=== PATIENT | male | born 1990 | race American Indian/Alaskan Native ===

== ENCOUNTER 2019-09-10 08:55 | Emergency (ER) | payer SELFPAY ==
--- NOTE | 2019-09-10 09:08 | Event Note ---
ED Screening Note ED Screening Note: c/o left hand pain and edema that began yesterday states he believes he jammed never injured before no PMHx no allergies to meds This initial assessment/diagnostic orders/clinical plan/treatment(s) is/are subject to change based on patients health status, clinical progression and re- assessment by fellow clinical providers in the ED. Further treatment and workup at subsequent clinical providers discretion. Patient/guardian urged not to elope from the ED as their condition may be serious if not clinically assessed and managed. Initial orders include: XR of left hand
[2019-09-10 09:10] VITALS: BP 124/75
--- NOTE | 2019-09-10 09:50 | XRay Report ---
LEFT HAND 4 VIEWS INDICATION / CLINICAL INFORMATION: Injured left hand while working with left hand pain and edema. COMPARISON: None available. FINDINGS: BONES / JOINT(S): The joint spaces are well-maintained. There is no evidence of fracture or dislocati on. SOFT TISSUES: There is moderate soft tissue swelling involving the dorsum of the hand. I see no evide nce of a radiopaque foreign body. ADDITIONAL FINDINGS: None. IMPRESSION: Moderate dorsal soft tissue swelling without acute osseous abnormality. Signer Name: Luis E Donnelly MD Signed: 09/10/2019 9:45 AM Workstation Name: [id number]
--- NOTE | 2019-09-10 10:12 | Emergency Department Report ---
HPI - General Chief Complaint: Extremity Injury, Upper Time Seen by Provider: 09/10/19 09:32 - HPI HPI: 28-year-old -Serbian male presents to the emergency department with complaint of some left hand pain and swelling. The patient is not very fort hcoming about the incident that caused his symptoms. Through triage he mentioned something about boxing. For me, the patient says something about accidentally hitting it on something. He is right-hand dominant. He has not taken anything for her symptoms prior to presentation. ED Past Medical Hx - Past Medical History Previous Medical History?: No - Surgical History Past Surgical History?: No - Social History Smoking Status: Never Smoker Substance Use Type: None - Medications Home Medications: Home Medications Medication Instructions Recorded Confirmed Last Taken Type Ibuprofen [Motrin 800 MG tab] 800 mg PO Q8HR PRN #20 tablet 09/10/19 Unknown Rx ED Review of Systems ROS: Stated complaint: LFT HAND SWELING/PAIN Other details as noted in HPI Comment: All other systems reviewed and negative Constitutional: denies: fever Musculoskeletal: joint swelling, arthralgia Skin: denies: rash, lesions Neurological: denies: numbness, paresthesias Physical Exam - Physical Exam Vital Signs: Vital Signs 09/10/19 09:08 Temperature 97.4 F L Pulse Rate 62 Respiratory 20 Rate Blood Pressure 124/75 O2 Sat by Pulse 100 Oximetry Physical Exam: GENERAL: The patient is well-developed well-nourished. HENT: Normocephalic. Atraumatic. Patient has moist mucous membranes. EYES: Extraocular motions are intact. NECK: Supple. Trachea is midline. CHEST/LUNGS: Clear to auscultation. There is no respiratory distress noted. HEART/CARDIOVASCULAR: Regular. There is no tachycardia. There is no murmur. ABDOMEN: There is no abdominal distention. SKIN: Skin is warm and dry. NEURO: The patient is awake, alert, and oriented. The patient is cooperative. The patient has no focal neurologic deficits. Normal speech. MUSCULOSKELETAL: There is some tenderness to palpation to the dorsal left hand, worse towards the radial side. There is some decreased range of motion of the left hand secondary to pain and swelling. Radial pulse +2 over 4 and capillary refill less than 2 seconds to the affected left hand and wrist. ED Course Vital Signs 09/10/19 09:08 Temperature 97.4 F L Pulse Rate 62 Respiratory 20 Rate Blood Pressure 124/75 O2 Sat by Pulse 100 Oximetry ED Medical Decision Making - Radiology Data Radiology results: image reviewed interpreted by me: X-ray of the left hand does not show any fracture, dislocation or any acute process. There is soft tissue swelling noted. - Medical Decision Making This patient presents with some swelling and pain to the dorsal left hand after some type of injury. The patient is not very forthcoming about the etiology of the injury. He is neurovascularly intact. X-ray shows some soft tissue swelling but no fracture or dislocation. He has been placed in a splint and given referral for an orthopedist. He will return to the ER with any worsening of his symptoms or any acute distress. - Differential Diagnosis fracture, dislocation, contusion, sprain Critical Care Time: No Critical care attestation.: If time is entered above; I have spent that time in minutes in the direct care of this critically ill patient, excluding procedure time. ED Disposition Clinical Impression: Injury of left hand Qualifiers: Encounter type: initial encounter Qualified Code(s): S69.92XA - Unspecified injury of left wrist, hand and finger(s), initial encounter Hand contusion Qualifiers: Encounter type: initial encounter Laterality: left Qualified Code(s): S60.222A - Contusion of left hand, initial encounter Disposition: TO HOME OR SELFCARE Is pt being admited?: No Condition: Stable Instructions: Arthralgia (ED) Additional Instructions: Please follow-up with an orthopedist in the next few days, and I am giving you a referral for a local orthopedist, Dr. Lim. Return to the emergency Department with any worsening of your symptoms or any acute distress. I recommend wearing the splint until follow-up with the orthopedist. You can use ice multiple times a day, although not directly against the skin, for the swelling. Prescriptions: Ibuprofen [Motrin 800 MG tab] 800 mg PO Q8HR PRN #20 tablet PRN Reason: Pain , Severe (7-10) Referrals: DENISE LIM MD [Staff Physician] - 2-3 Days Forms: Work/School Release Form(ED) Time of Disposition: 10:12
== END 2019-09-10 10:30 | disposition home or self-care (01) ==
LOC: ED 08:55
DX: S60.222A Contusion of left hand, initial encounter (principal); X58.XXXA Exposure to other specified factors, initial encounter; Y93.89 Activity, other specified; Y92.89 Other specified places as the place of occurrence of the external cause; Y99.8 Other external cause status

== ENCOUNTER 2019-10-11 19:09 | Inpatient (IN) | payer OTHER ==
--- NOTE | 2019-10-11 21:40 | Emergency Department Report ---
Chief Complaint: Extremity Injury, Lower Stated Complaint: BODY PAIN/FEVER Time Seen by Provider: 10/11/19 21:34 - HPI History of Present Illness: 29 y/o male comes in for fever and body ache and right leg pain. Patient works for [employer]. Patient doesn't have a PCP. - Exam Vital Signs: Vital Signs 10/11/19 19:56 Temperature 98.7 F Pulse Rate 99 H Respiratory 18 Rate Blood Pressure 109/52 O2 Sat by Pulse 99 Oximetry Physical Exam: AxO times 3 NAD Chest CTA Heart RRR Right leg mild swelling and red streak MSE screening note: Focused history and physical exam performed. Due to findings the following was ordered: ED Disposition for MSE Condition: Stable
[2019-10-11] MEDS ORDERED: KETOROLAC 30 MG/1 ML INJ IV ONE (22:17)
[2019-10-11] MEDS ORDERED: SULFAMETHOXAZOLE/TRIMETHOPRIM 800/160MG DS TAB PO ONE (22:17)
[2019-10-11] MEDS ORDERED: SODIUM CHLORIDE 0.9% 1000 ML 1,000 ML IV ONE (22:18)
[2019-10-11 22:51] LABS: Basophils % (Auto) 0.3 % (0.0-1.8); Hematocrit 38.5 % (35.5-45.6); Hemoglobin 13.4 gm/dl (11.8-15.2); Lymphocytes # (Auto) 0.7 K/mm3 (1.2-5.4); Mean Corpuscular HGB Conc 35 % (32-34); Mean Corpuscular Volume 86 fl (84-94); Monocytes # (Auto) 1.5 K/mm3 (0.0-0.8); Monocytes % (Auto) 7.8 % (0.0-7.3); Platelet Count 214 K/mm3 (140-440); Red Blood Count 4.48 M/mm3 (3.65-5.03); Red Cell Distribution Width 13.6 % (13.2-15.2)
[2019-10-11 23:57] LABS: Alanine Aminotransferase 9 units/L (7-56); Albumin 4.5 g/dL (3.9-5); BUN/Creatinine Ratio 18; Blood Urea Nitrogen 18 mg/dL (9-20); Hemolysis Index 4
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
[2019-10-12] MEDS ORDERED: SODIUM CHLORIDE 0.9% 1000 ML IV SOLN IV ONE (01:04)
[2019-10-12] MEDS ORDERED: ACETAMINOPHEN 325 MG TAB PO PRN (01:43)
[2019-10-12] MEDS ORDERED: MAGNESIUM HYDROXIDE (MOM) ORAL LIQD UDC PO PRN (01:43)
[2019-10-12] MEDS ORDERED: ONDANSETRON 4 MG/2 ML INJ IV PRN (01:43)
[2019-10-12] MEDS ORDERED: SODIUM CHLORIDE 0.9% 1000 ML 1,000 ML IV SCH (01:45)
[2019-10-12] MEDS ORDERED: VANCOMYCIN 1,500 MG in SODIUM CHLORIDE 0.9% 500 ML 500 ML IV ONE (02:00)
[2019-10-12] MEDS ORDERED: VANCOMYCIN PHARMACY TO DOSE IV SCH (02:00)
--- NOTE | 2019-10-12 06:23 | History and Physical Report ---
History of Present Illness Date of examination: 10/12/19 Date of admission: 10/12/19 01:24 Chief complaint: Pain and redness on the right leg History of present illness: 29-year-old -[place] Islander male presenting to the emergency room today complaining of pain and swelling of the right lower extremity. He has also has some redness on the anterior aspect of the right leg. He denies any fall and denies any trauma to the right lower extremity. Patient indicates that he has been having some fever and chills at home and also also has some generalized body aches and pain over the past few days. Upon arrival in the emergency room patient was found to to be slightly tachycardic, elevated white count of 18, further evaluation reveals cellulitis of the right lower extremity. Past History Past Surgical History: No surgical history Social history: no significant social history Family history: no significant family history Medications and Allergies Allergies Allergy/AdvReac Type Severity Reaction Status Date / Time No Known Allergies Allergy Unverified 09/10/19 08:58 Home Medications Medication Instructions Recorded Confirmed Last Taken Type Ibuprofen [Motrin 800 MG tab] 800 mg PO Q8HR PRN #20 tablet 09/10/19 Unknown Rx Active Meds: Active Medications Acetaminophen (Tylenol) 650 mg PO Q4H PRN PRN Reason: Pain MILD(1-3)/Fever >100.5/WEST Vancomycin HCl 1,250 mg/ (Sodium Chloride) 275 mls @ 166.667 mls/hr IV Q8H JOELLEN Sodium Chloride (Nacl 0.9% 1000 Ml) 1,000 mls @ 75 mls/hr IV DIRECT JOELLEN Magnesium Hydroxide (Milk Of Magnesia) 30 ml PO Q4H PRN PRN Reason: Constipation Ondansetron HCl (Zofran) 4 mg IV Q8H PRN PRN Reason: Nausea And Vomiting Sodium Chloride (Sodium Chloride Flush Syringe 10 Ml) 10 ml IV BID JOELLEN Sodium Chloride (Sodium Chloride Flush Syringe 10 Ml) 10 ml IV PRN PRN PRN Reason: LINE FLUSH Review of Systems Constitutional: fever, chills Integumentary: redness (Redness on the right leg) Exam - Constitutional Vitals: Temp Pulse Resp BP Pulse Ox 97.9 F 72 20 120/71 100 10/12/19 02:31 10/12/19 02:31 10/12/19 04:01 10/12/19 02:31 10/12/19 02:31 General appearance: Present: no acute distress - EENT Eyes: Present: PERRL, EOM intact ENT: hearing intact, clear oral mucosa - Neck Neck: Present: supple, normal ROM - Respiratory Respiratory effort: normal Respiratory: bilateral: CTA - Cardiovascular Rhythm: regular Heart Sounds: Present: S1 & S2 - Extremities Extremities: no ischemia, No edema, Full ROM Extremity abnormal: erythema (Erythema on the anterior aspect of the right leg), tenderness (Mild tenderness on the right leg) Peripheral Pulses: within normal limits - Abdominal General gastrointestinal: Present: soft, non-tender, normal bowel sounds - Integumentary Integumentary: Present: clear, warm, dry - Musculoskeletal Musculoskeletal: strength equal bilaterally - Psychiatric Psychiatric: appropriate mood/affect, intact judgment & insight, cooperative - Neurologic Neurologic: CNII-XII intact Results - Labs CBC & Chem 7: 10/11/19 22:32 10/11/19 22:32 Labs: Abnormal lab results 10/11/19 10/11/19 Range/Units 22:32 22:32 WBC 18.6 H (4.5-11.0) K/mm3 MCHC 35 H (32-34) % Lymph % (Auto) 4.0 L (13.4-35.0) % [place] % (Auto) 7.8 H (0.0-7.3) % Lymph # 0.7 L (1.2-5.4) K/mm3 [place] # 1.5 H (0.0-0.8) K/mm3 Seg Neutrophils % 87.9 H (40.0-70.0) % Seg Neutrophils # 16.4 H (1.8-7.7) K/mm3 Sodium 134 L (137-145) mmol/L Chloride 95.8 L (98-107) mmol/L Glucose 109 H (75-100) mg/dL Total Bilirubin 1.70 H (0.1-1.2) mg/dL Assessment and Plan - Patient Problems (1) Cellulitis of right lower extremity Current Visit: Yes Status: Acute Plan to address problem: Patient has been placed on empiric IV antibiotics. We await blood culture results. Will encourage patient to elevate right lower extremity. (2) Sepsis due to cellulitis Current Visit: Yes Status: Acute Plan to address problem: We will continue on IV antibiotics and IV fluid as above. (3) Leukocytosis Current Visit: Yes Status: Acute Plan to address problem: Possibly secondary to the cellulitis. Will monitor CBC. (4) DVT prophylaxis Current Visit: Yes Status: Acute Plan to address problem: Patient placed on subcutaneous heparin. (5) Full code status Current Visit: Yes Status: Acute
[2019-10-12] MEDS ORDERED: VANCOMYCIN 1,250 MG in SODIUM CHLORIDE 0.9% 250ML 250 ML IV SCH (10:00)
--- NOTE | 2019-10-12 11:24 | Vascular Lab Report ---
DUPLEX DOPPLER LOWER EXTREMITY VEINS, BILATERAL INDICATION: dvt. TECHNIQUE: Duplex doppler imaging was performed through the veins of both lower extremities using venous alex hipolito and other maneuvers. COMPARISON: None available. FINDINGS: Right Common femoral vein: Negative. Right Superficial femoral vein: Negative. Right Popliteal vein: Negative. Right Calf veins: Negative. Left Common femoral vein: Negative. Left Superficial femoral vein: Negative. Left Popliteal vein: Negative. Left Calf veins: Negative. Additional findings: Prominent right groin nodes. Superficial thrombus at the greater saphenous vein at the level the proximal calf. IMPRESSION: 1. No sonographic evidence for DVT in either lower extremity. 2. Probable reactive groin nodes. 3. Superficial thrombus greater saphenous vein and proximal calf. Signer Name: Riky Robert MD Signed: 10/12/2019 11:20 AM Workstation Name: [id number]
[2019-10-12] MEDS: HEPARIN 5,000 UNIT/1 ML VIAL SUB-Q SCH ×2 (13:19→22:30)
--- NOTE | 2019-10-12 15:13 | Event Note ---
Date: 10/12/19 Patient seen and examined, right lower ext with extensive erythema from the groin to the ankle in the medial aspect. Denies any STDs, ingrown hair. Continue abx, obtain ID consult US to rule out DVT.
[2019-10-12 15:24] LABS: Bilirubin,Urine NEG (Negative); Blood,Urine NEG (Negative); Color,Urine Yellow (Yellow); Mucus,Urine FEW /HPF; Protein,Urine <15 mg/dL mg/dL (Negative)
--- NOTE | 2019-10-12 15:25 | Consultation ---
History of Present Illness - Reason for Consult Consult date: 10/12/19 R leg cellulitis Requesting physician: TRAVON PORTER - History of Present Illness The patient is a 29-year-old male with no significant past medical history who came into the emergency room yesterday with complaints of right leg swelling, pain and redness that began the day prior. Associated with some fevers and chills. Denies nausea, vomiting or diarrhea. Denies any high risk behavior, smoking, alcohol or drug use, works for [employer], not sexually active, denies any trauma. Was diagnosed with cellulitis, started on IV antibiotics. Infectious diseases was consulted for antibiotic recommendations. The sounds showed no DVT, showed possible SVT involving the saphenous vein and proximal calf. Review of Systems: General: fever, chills HEENT: no new visual disturbance Respiratory: No cough, sputum, hemoptysis or shortness of breath Cardiovascular: No chest pain, syncope Gastrointestinal: No nausea, vomiting or diarrhea Genitourinary: No dysuria or hematuria Musculoskeletal: No new or worsening neck pain or back pain Neurologic: No headaches, seizures Hematologic: No easy bruising or bleeding Endocrine: No night sweats or acute weight loss Skin: negative for rash, jaundice Psychiatric: No suicidal or homicidal ideation Past History Past Surgical History: No surgical history Social history: no significant social history Family history: no significant family history Medications and Allergies Allergies Allergy/AdvReac Type Severity Reaction Status Date / Time No Known Allergies Allergy Unverified 09/10/19 08:58 Home Medications Medication Instructions Recorded Confirmed Last Taken Type No Known Home Medications [No 10/12/19 10/12/19 Unknown History Reported Home Medications] Active Meds: Active Medications Acetaminophen (Tylenol) 650 mg PO Q4H PRN PRN Reason: Pain MILD(1-3)/Fever >100.5/WEST Heparin Sodium (Porcine) (Heparin) 5,000 unit SUB-Q Q8HR JOELLEN Last Admin: 10/12/19 13:19 Dose: 5,000 unit Documented by: Vancomycin HCl 1,250 mg/ (Sodium Chloride) 275 mls @ 166.667 mls/hr IV Q8H JOELLEN Last Admin: 10/12/19 09:47 Dose: 166.667 mls/hr Documented by: Sodium Chloride (Nacl 0.9% 1000 Ml) 1,000 mls @ 75 mls/hr IV DIRECT JOELLEN Magnesium Hydroxide (Milk Of Magnesia) 30 ml PO Q4H PRN PRN Reason: Constipation Ondansetron HCl (Zofran) 4 mg IV Q8H PRN PRN Reason: Nausea And Vomiting Sodium Chloride (Sodium Chloride Flush Syringe 10 Ml) 10 ml IV BID [facility] Last Admin: 10/12/19 09:48 Dose: 10 ml Documented by: Sodium Chloride (Sodium Chloride Flush Syringe 10 Ml) 10 ml IV PRN PRN PRN Reason: LINE FLUSH Physical Examination - Physical Exam Narrative exam: Physical Exam: Constitutional: Alert, cooperative. No acute distress Head, Ears, Nose: Normocephalic, atraumatic. External ears, nose normal Eyes: Conjunctivae/corneas clear. No icterus. No ptosis. Neck: Supple, no meningeal signs Oral: dentition fair, no thrush Cardiovascular: S1, S2 normal. Respiratory: Good air entry, clear to auscultation bilaterally GI: Soft, non-tender; bowel sounds normal. No peritoneal signs Musculoskeletal: R leg redness, warmth and tenderness involving the boswell, also lymphangitis and streaking up the R medial thigh Skin: No rash or abscess Hem/Lymphatic: No palpable cervical or supraclavicular nodes. lymphangitis as above. Psych: Mood ok. Affect normal Neurological: Awake, alert, oriented. No gross abnormality - Constitutional Vitals: Vital Signs Temp Pulse Resp BP Pulse Ox 100.5 F H 91 H 18 106/44 98 10/12/19 12:15 10/12/19 12:15 10/12/19 12:15 10/12/19 12:15 10/12/19 12:15 Temperature -Last 24 Hours Temperature 100.5 F Temperature 97.5 F Temperature 97.9 F Temperature 98.7 F Results - Labs CBC & Chem 7: 10/11/19 22:32 10/11/19 22:32 Labs: Abnormal lab results 10/11/19 10/11/19 Range/Units 22:32 22:32 WBC 18.6 H (4.5-11.0) K/mm3 MCHC 35 H (32-34) % Lymph % (Auto) 4.0 L (13.4-35.0) % [place] % (Auto) 7.8 H (0.0-7.3) % Lymph # 0.7 L (1.2-5.4) K/mm3 [place] # 1.5 H (0.0-0.8) K/mm3 Seg Neutrophils % 87.9 H (40.0-70.0) % Seg Neutrophils # 16.4 H (1.8-7.7) K/mm3 Sodium 134 L (137-145) mmol/L Chloride 95.8 L (98-107) mmol/L Glucose 109 H (75-100) mg/dL Total Bilirubin 1.70 H (0.1-1.2) mg/dL Assessment and Plan Cultures: 10/11/2019 blood culture: In progress A/P: 29/M with: Sepsis RLE cellulitis, non purulent: lymphangitic spread medially along the thigh. Classic beta-hemolytic Strep type picture. No clinical concern for nec fasc. No risk factors as such. Recs: Vancomycin discontinued IV Cefazolin started When improved, can discharge on PO Keflex 500 mg QID x 7 days Cecilio Wright MD, FACP [facility] C: [phone] O: [phone] F: [phone]
[2019-10-13] MEDS: HEPARIN 5,000 UNIT/1 ML VIAL SUB-Q SCH (05:01)
[2019-10-13 05:02] LABS: Basophils % (Auto) 0.3 % (0.0-1.8); Eosinophils % (Auto) 0.2 % (0.0-4.3); Hematocrit 35.9 % (35.5-45.6); Hemoglobin 12.2 gm/dl (11.8-15.2); Lymphocytes # (Auto) 1.7 K/mm3 (1.2-5.4); Lymphocytes % (Auto) 14.1 % (13.4-35.0); Mean Corpuscular HGB Conc 34 % (32-34); Mean Corpuscular Volume 87 fl (84-94); Monocytes % (Auto) 8.7 % (0.0-7.3); Platelet Count 182 K/mm3 (140-440); Red Blood Count 4.12 M/mm3 (3.65-5.03); Red Cell Distribution Width 13.9 % (13.2-15.2)
[2019-10-13 05:11] LABS: INR 1.15 (0.87-1.13)
[2019-10-13 05:13] LABS: Partial Thromboplastin Time 29.8 Sec. (24.2-36.6)
[2019-10-13 05:31] LABS: BUN/Creatinine Ratio 9; Blood Urea Nitrogen 8 mg/dL (9-20); Calcium 7.8 mg/dL (8.4-10.2); Hemolysis Index 2
--- NOTE | 2019-10-13 11:02 | Discharge Summary ---
Providers - Providers Date of Admission: 10/12/19 01:24 Attending physician: TRAVON PORTER MD 10/12/19 12:25 Consult to Physician [CONS] Routine Comment: Consulting Provider: ALF BERNARD Physician Instructions: Reason For Exam: right lower ext cellulitis Primary care physician: [employer] Hospitalization Reason for admission: cellulitis Condition: Stable Hospital course: The patient is a 29-year-old male with no significant past medical history who came into the emergency room yesterday with complaints of right leg swelling, pain and redness that began the day prior. Associated with some fevers and chills. Denies nausea, vomiting or diarrhea. Denies any high risk behavior, smoking, alcohol or drug use, works for [employer], not sexually active, denies any trauma. Was diagnosed with cellulitis, started on IV antibiotics. Infectious diseases was consulted for antibiotic recommendations. The sounds showed no DVT, showed possible SVT involving the saphenous vein and proximal calf. * Patient seen and examined today, clinically stable was seen by ID and changed to Cefazolin and can be discharged on Keflex 500mg QID for 7 days * Recommneded to follow with ID outpatient (1) Cellulitis of right lower extremity (2) Sepsis due to cellulitis (3) Leukocytosis Disposition: DC- TO HOME OR SELFCARE Time spent for discharge: 35 mins Core Measure Documentation - Palliative Care Palliative Care/ Comfort Measures: Not Applicable - Core Measures Any of the following diagnoses?: none Exam - Physical Exam Narrative exam: General appearance: Present: no acute distress - EENT Eyes: Present: PERRL, EOM intact ENT: hearing intact, clear oral mucosa - Neck Neck: Present: supple, normal ROM - Respiratory Respiratory effort: normal Respiratory: bilateral: CTA - Cardiovascular Rhythm: regular Heart Sounds: Present: S1 & S2 - Extremities Extremities: no ischemia, No edema, Full ROM Extremity abnormal: erythema R leg redness, warmth and tenderness involving the boswell, also lymphangitis and streaking up the R medial thigh Peripheral Pulses: within normal limits - Abdominal General gastrointestinal: Present: soft, non-tender, normal bowel sounds - Integumentary Integumentary: Present: clear, warm, dry - Musculoskeletal Musculoskeletal: strength equal bilaterally - Psychiatric Psychiatric: appropriate mood/affect, intact judgment & insight, cooperative - Neurologic Neurologic: CNII-XII intact - Constitutional Vitals: Temp Pulse Resp BP Pulse Ox 99.1 F 76 18 127/65 97 10/13/19 05:07 10/13/19 05:07 10/13/19 05:07 10/13/19 05:07 10/13/19 05:07 Plan Activity: advance as tolerated, fall precautions Diet: regular Special Instructions: record daily BP diary Follow up with: [facility] [Outside] - 7 Days Forms: Work/School Release Form Prescriptions: cephALEXin [Keflex] 500 mg PO Q6HR #28 capsule
--- NOTE | 2019-10-13 12:29 | Progress Note ---
Assessment and Plan Cultures: 10/11/2019 blood culture: no growth thus far A/P: 29/M with: #Sepsis #RLE cellulitis, non purulent: lymphangitic spread medially along the thigh. Classic beta-hemolytic Strep type picture. No clinical concern for nec fasc. No risk factors as such. Recs: Improving. Ok for discharge on PO Keflex 750 mg QID x 7 days. d/w Dr. Carey. Cecilio Wright MD, FACP [facility] ([facility]) C: [phone] O: [phone] F: [phone] Subjective Date of service: 10/13/19 Interval history: No fever. Feeling better. Wants to go home. Leg swelling and pain improving. Father at bedside. Objective - Exam Narrative Exam: Physical Exam: Constitutional: Alert, cooperative. No acute distress Head, Ears, Nose: Normocephalic, atraumatic. External ears, nose normal Eyes: Conjunctivae/corneas clear. No icterus. No ptosis. Neck: Supple, no meningeal signs Oral: dentition fair, no thrush Cardiovascular: S1, S2 normal. Respiratory: Good air entry, clear to auscultation bilaterally GI: Soft, non-tender; bowel sounds normal. No peritoneal signs Musculoskeletal: R leg redness, warmth and tenderness involving the boswell, also lymphangitis and streaking up the R medial thigh improving. Skin: No rash or abscess Hem/Lymphatic: No palpable cervical or supraclavicular nodes. lymphangitis as above. Psych: Mood ok. Affect normal Neurological: Awake, alert, oriented. No gross abnormality - Constitutional Vitals: Vital Signs Temp Pulse Resp BP Pulse Ox 99.1 F 76 18 127/65 97 10/13/19 05:07 10/13/19 05:07 10/13/19 05:07 10/13/19 05:07 10/13/19 05:07 Temperature -Last 24 Hours Temperature 99.1 F Temperature 98.9 F Temperature 99.3 F - Labs CBC & Chem 7: 10/13/19 04:16 10/13/19 04:16 Labs: Abnormal lab results 10/13/19 10/13/19 10/13/19 Range/Units 04:16 04:16 04:16 WBC 11.8 H (4.5-11.0) K/mm3 [place] % (Auto) 8.7 H (0.0-7.3) % [place] # 1.0 H (0.0-0.8) K/mm3 Seg Neutrophils % 76.7 H (40.0-70.0) % Seg Neutrophils # 9.1 H (1.8-7.7) K/mm3 INR 1.15 H (0.87-1.13) Chloride 107.9 H (98-107) mmol/L Carbon Dioxide 21 L (22-30) mmol/L BUN 8 L (9-20) mg/dL Calcium 7.8 L (8.4-10.2) mg/dL
[2019-10-13 15:43] VITALS: BP 119/59
== END 2019-10-13 12:50 | disposition home or self-care (01) | DRG 872 ==
LOC: ED 19:09 → 3A 10-12 01:24
PROVIDERS: ADMIT Internal Medicine Geriatric Medicine; ATTEND Internal Medicine
DX: A41.9 Sepsis, unspecified organism (principal); L03.115 Cellulitis of right lower limb; I82.813 Embolism and thrombosis of superficial veins of lower extremities, bilateral
CPT/HCPCS: 36415; 80048; 80053; 81001; 82140; 85025; 85610; 85730; 86850; 86900; 86901; 87040; 87086; 96374; G0378; J0690; J1644; J1885; J3370; J7030; J7040; J7050

== ENCOUNTER 2020-01-02 17:09 | Emergency (ER) | payer BC ==
[2020-01-02 20:02] VITALS: BP 140/66
--- NOTE | 2020-01-02 20:02 | Event Note ---
ED Screening Note Date of service: 01/02/20 Time: 19:58 ED Screening Note: 29 y o male with no Prior medical hx presents to ED cc of right anterior foot and boswell pain and swelling x some days Pt denies injury, fever, fall or trauma Pt states he has had cellulitis on that foot in the past NO redness, swelling noted to right anterior foot Initial orders include: PCP referral Pt presents with a non-medical emergency Examination is normal, Vital sign are stable Pt given information for clinics to follow up with pcp for further treatment and evaluation Also discussed strict return precautions in detail with pt who verbalized understanding
== END 2020-01-02 21:00 | disposition home or self-care (01) ==
LOC: ED 17:09
DX: M79.671 Pain in right foot (principal); M79.89 Other specified soft tissue disorders
CPT/HCPCS: 99282